=== PATIENT | female | born 2000 | race Asian ===

== ENCOUNTER 2022-09-22 07:41 | Emergency (ER) | payer OTHER ==
--- NOTE | 2022-09-22 07:48 | ED Physician Documentation ---
PD HPI NVD - Stated complaint Stated Complaint: DIARRHEA - History obtained from History obtained from: Patient - History of Present Illness Timing - onset: Today, Last night Timing - details: Gradual onset, Still present, Waxing and waning (She had onset of lower to mid abdominal cramping associated with nausea and several episodes of vomiting and loose to watery diarrhea overnight. It has decreased some now. Still general feeling ill.) Associated symptoms: Abdominal pain (cramping), Loss of appetite. No: Fever, Chest pain, Near syncope / syncope Improved by: BM. No: Eating Worsened by: Eating Similar symptoms before: Has not had sx before Recently seen: Not recently seen Review of Systems Constitutional: reports: Myalgias. denies: Fever, Chills Nose: denies: Rhinorrhea / runny nose, Congestion Throat: denies: Sore throat Respiratory: denies: Cough GI: reports: Abdominal Pain, Nausea, Vomiting, Diarrhea. denies: Hematemesis, Bloody / black stool : denies: Dysuria, Frequency PD PAST MEDICAL HISTORY - Past Medical History Cardiovascular: None Respiratory: None Neuro: None Endocrine/Autoimmune: None GI: None - Present Medications Home Medications: Ambulatory Orders Medication Instructions Recorded Confirmed Ondansetron Odt [Zofran] 4 mg TL Q6H PRN #10 tablet 09/22/22 - Allergies Allergies/Adverse Reactions: Allergies Allergy/AdvReac Type Severity Reaction Status Date / Time No Known Drug Allergies Allergy Verified 09/22/22 07:51 PD ED PE NORMAL - Vitals Vital signs reviewed: Yes - General General: Alert and oriented X 3, Well developed/nourished - Cardiac Cardiac: RRR, No murmur - Respiratory Respiratory: Clear bilaterally - Abdomen Abdomen: Normal bowel sounds, Soft, Non distended, Other (Mild tenderness in the periumbilical to left abdomen area. Not tender in the right lower quadrant nor gallbladder area. No guarding, percussion, rebound tenderness.) Results - Vitals Vitals: Vital Signs - 24 hr 09/22/22 07:49 Temperature 36 C L Heart Rate 87 Respiratory 20 Rate Blood Pressure 122/83 H O2 Saturation 99 Oxygen O2 Source Room air PD Medical Decision Making - ED course Complexity details: considered differential (Sounds mainly like a viral gastroenteritis or potentially food related intolerance. Commonly would be a day or 2 process. Abdomen is benign on exam with minimal tenderness centrally. Considered but do not feel needed work-up for acute of abdominal process at this time. Shared decision with pt.), d/w patient Departure - Departure Disposition: 01 Home, Self Care Clinical Impression: Abdominal cramping, Nausea vomiting and diarrhea Condition: Stable Record reviewed to determine appropriate education?: Yes Instructions: ED Diet Vomiting Diarrhea Follow-Up: [facility] [Provider Group] Prescriptions: Ondansetron Odt [Zofran] 4 mg TL Q6H PRN #10 tablet PRN Reason: Nausea / Vomiting Comments: This sounds most likely to be a viral gastroenteritis or food related intolerance ("food poisoning"). Typically these last 1 to 2 days. He can use ondansetron if needed for nausea. Pepto is melena or Imodium if needed for diarrhea. Use ibuprofen 2-3 times daily if needed for cramps and pains. Add Tylenol if needed. Recheck if not improved well over the next couple of days. Off work today. In particular recheck if you have fevers, bloody stool, more consistent localized pain such as right lower quadrant, repetitive vomiting or other concerns. Regarding your trouble sleeping, you could try diphenhydramine/Benadryl at night instead of the melatonin to see if it works better for you. It could even be used in addition to the melatonin. Follow-up with your primary care/base clinic regarding irregular periods. Forms: Activity restrictions Discharge Date/Time: 09/22/22 08:44
[2022-09-22 07:58] VITALS: BP 122/83; O2SAT 99
[2022-09-22] MEDS ORDERED: ACETAMINOPHEN 325 MG TABLET PO STA (08:20)
[2022-09-22] MEDS ORDERED: ONDANSETRON ODT 4 MG TABLET TL STA (08:20)
== END 2022-09-22 08:44 | disposition home or self-care (01) ==
LOC: ED 07:41
DX: R10.9 Unspecified abdominal pain (principal); R11.2 Nausea with vomiting, unspecified; R19.7 Diarrhea, unspecified
CPT/HCPCS: 99282; 99283; A9270; Q0162